=== PATIENT | female | born 1955 | race Caucasian/White ===

== ENCOUNTER 2023-12-01 10:22 | Outpatient (RCR) | payer OTHER, SELFPAY ==
[2023-08-15 13:08] LABS: Hematocrit* 35.8 % (33.0-51.0); Hemoglobin* 12.0 gm/dL (12.0-16.0); Immature Granulocytes Abs Auto 0.01 K/uL (0.00-0.30); Immature Granulocytes Pct Auto 0.2 %; Lymphocytes Absolute Auto 1.04 K/uL (0.90-2.90); Mean Corpuscular HGB Conc 34 gm/dL (32-36); Mean Corpuscular Hemoglobin 38 pg (26-34); Mean Corpuscular Volume 113 fL (80-100); RDW Coefficient of Variation % 14.6 % (11.5-15.5); Red Blood Count* 3.16 m/uL (4.00-5.20); White Blood Count* 4.70 K/uL (4.50-11.00)
[2023-08-15 13:16] LABS: Albumin* 4.4 g/dL (3.3-5.0); Chloride* 104 mmol/L (96-114); Slide Review Reflex No; Sodium* 136 mmol/L (135-149)
[2023-08-15 13:17] LABS: Potassium* 3.6 mmol/L (3.6-5.1)
[2023-08-15 13:19] LABS: Alanine Aminotransferase* 22 U/L (4-35); Alkaline Phosphatase* 96 U/L (40-150); Anion Gap 8 mEq/L (7-15); Aspartate Amino Transferase* 36 U/L (12-35); Bilirubin Total* 1.5 mg/dL (0.1-1.5); Blood Urea Nitrogen* 24 mg/dL (7-30); Carbon Dioxide* 24 mmol/L (20-32); Creatinine* 0.7 mg/dL (0.5-1.5); Estimated Glomerular Filt Rate 94 ml/min; Total Protein* 6.8 g/dL (6.0-8.3)
[2023-08-15 13:20] LABS: Calcium* 9.7 mg/dL (8.4-10.6); Glucose* 96 mg/dL (60-115)
[2023-08-16 18:26] LABS: Carcinoembryonic Antigen 12.8 ng/mL
[2023-09-20 17:13] LABS: Chloride* 103 mmol/L (96-114)
[2023-09-20 17:14] LABS: Albumin* 4.7 g/dL (3.3-5.0); Potassium* 4.2 mmol/L (3.6-5.1); Sodium* 136 mmol/L (135-149)
[2023-09-20 17:17] LABS: Alanine Aminotransferase* 19 U/L (4-35); Alkaline Phosphatase* 95 U/L (40-150); Anion Gap 7 mEq/L (7-15); Aspartate Amino Transferase* 43 U/L (12-35); Bilirubin Total* 1.4 mg/dL (0.1-1.5); Blood Urea Nitrogen* 27 mg/dL (7-30); Carbon Dioxide* 26 mmol/L (20-32); Creatinine* 0.7 mg/dL (0.5-1.5); Estimated Glomerular Filt Rate 94 ml/min; Glucose* 97 mg/dL (60-115); Total Protein* 7.3 g/dL (6.0-8.3)
[2023-09-20 17:18] LABS: Calcium* 10.0 mg/dL (8.4-10.6)
[2023-09-20 18:56] LABS: Hematocrit* 36.8 % (33.0-51.0); Hemoglobin* 12.2 gm/dL (12.0-16.0); Immature Granulocytes Abs Auto 0.00 K/uL (0.00-0.30); Immature Granulocytes Pct Auto 0.0 %; Lymphocytes Absolute Auto 1.30 K/uL (0.90-2.90); Mean Corpuscular HGB Conc 33 gm/dL (32-36); Mean Corpuscular Hemoglobin 38 pg (26-34); Mean Corpuscular Volume 114 fL (80-100); RDW Coefficient of Variation % 15.5 % (11.5-15.5); Red Blood Count* 3.23 m/uL (4.00-5.20); White Blood Count* 5.40 K/uL (4.50-11.00)
[2023-09-20 19:08] LABS: Slide Review Reflex No
[2023-09-23 07:48] LABS: Carcinoembryonic Antigen 12.9 ng/mL
[2023-12-01 10:57] LABS: Hematocrit* 40.4 % (33.0-51.0); Hemoglobin* 13.2 gm/dL (12.0-16.0); Mean Corpuscular HGB Conc 33 gm/dL (32-36); Mean Corpuscular Hemoglobin 37 pg (26-34); Mean Corpuscular Volume 112 fL (80-100); RDW Coefficient of Variation % 16.1 % (11.5-15.5); Red Blood Count* 3.61 m/uL (4.00-5.20); White Blood Count* 3.75 K/uL (4.50-11.00)
[2023-12-01 10:58] LABS: Immature Granulocytes Abs Auto 0.00 K/uL (0.00-0.30); Immature Granulocytes Pct Auto 0.0 %
[2023-12-01 11:00] LABS: Lymphocytes Absolute Auto 0.90 K/uL (0.90-2.90); Slide Review Reflex No
[2023-12-01 11:17] LABS: Chloride* 101 mmol/L (96-114)
[2023-12-01 11:18] LABS: Albumin* 4.9 g/dL (3.3-5.0); Potassium* 4.5 mmol/L (3.6-5.1); Sodium* 136 mmol/L (135-149)
[2023-12-01 11:20] LABS: Anion Gap 10 mEq/L (7-15); Carbon Dioxide* 25 mmol/L (20-32); Creatinine* 0.8 mg/dL (0.5-1.5); Estimated Glomerular Filt Rate 80 ml/min
[2023-12-01 11:21] LABS: Alanine Aminotransferase* 20 U/L (4-35); Alkaline Phosphatase* 97 U/L (40-150); Aspartate Amino Transferase* 33 U/L (12-35); Bilirubin Total* 2.4 mg/dL (0.1-1.5); Blood Urea Nitrogen* 21 mg/dL (7-30); Calcium* 10.1 mg/dL (8.4-10.6); Glucose* 94 mg/dL (60-115); Total Protein* 7.8 g/dL (6.0-8.3)
[2023-12-02 23:11] LABS: Carcinoembryonic Antigen 11.3 ng/mL
== END 2024-11-06 08:22 | disposition home or self-care (01) ==
LOC: LAB 10:22
PROVIDERS: PCP Student in an Organized Health Care Education/Training Program; Visit Provider Physician Assistant
DX: C79.51 Secondary malignant neoplasm of bone (principal); R97.8 Other abnormal tumor markers
CPT/HCPCS: 36415; 80053; 82378; 85025; 86300

== ENCOUNTER 2023-12-14 13:06 | Outpatient (RCR) | payer OTHER, SELFPAY ==
[2023-12-14 13:36] LABS: Hematocrit* 38.2 % (33.0-51.0); Hemoglobin* 12.6 gm/dL (12.0-16.0); Immature Granulocytes Abs Auto 0.01 K/uL (0.00-0.30); Immature Granulocytes Pct Auto 0.2 %; Lymphocytes Absolute Auto 1.10 K/uL (0.90-2.90); Mean Corpuscular HGB Conc 33 gm/dL (32-36); Mean Corpuscular Hemoglobin 38 pg (26-34); Mean Corpuscular Volume 114 fL (80-100); RDW Coefficient of Variation % 16.3 % (11.5-15.5); Red Blood Count* 3.36 m/uL (4.00-5.20); Slide Review Reflex No; White Blood Count* 5.79 K/uL (4.50-11.00)
[2023-12-14 14:02] LABS: Albumin* 4.6 g/dL (3.3-5.0); Chloride* 104 mmol/L (96-114); Potassium* 4.5 mmol/L (3.6-5.1); Sodium* 139 mmol/L (135-149)
[2023-12-14 14:04] LABS: Anion Gap 7 mEq/L (7-15); Carbon Dioxide* 28 mmol/L (20-32); Cholesterol* 185 mg/dL (90-199); Creatinine* 0.6 mg/dL (0.5-1.5); Estimated Glomerular Filt Rate 97 ml/min
[2023-12-14 14:05] LABS: Alanine Aminotransferase* 23 U/L (4-35); Alkaline Phosphatase* 110 U/L (40-150); Aspartate Amino Transferase* 35 U/L (12-35); Bilirubin Total* 0.8 mg/dL (0.1-1.5); Blood Urea Nitrogen* 18 mg/dL (7-30); Calcium* 9.5 mg/dL (8.4-10.6); Glucose* 110 mg/dL (60-115); HDL Cholesterol* 82 mg/dL (>=50); LDL Cholesterol Calculated 74 mg/dL (<100); Total Protein* 7.1 g/dL (6.0-8.3); Triglycerides* 144 mg/dL (40-149)
[2023-12-16 04:24] LABS: Carcinoembryonic Antigen 10.3 ng/mL
== END 2024-12-06 23:59 | disposition home or self-care (01) ==
LOC: LAB 13:06
PROVIDERS: PCP Student in an Organized Health Care Education/Training Program; Visit Provider Student in an Organized Health Care Education/Training Program
DX: C50.911 Malignant neoplasm of unspecified site of right female breast (principal); C79.51 Secondary malignant neoplasm of bone; Z13.6 Encounter for screening for cardiovascular disorders; I10 Essential (primary) hypertension; Z79.899 Other long term (current) drug therapy
CPT/HCPCS: 36415; 80053; 80061; 82378; 85025; 86300

== ENCOUNTER 2024-01-19 10:13 | Outpatient (RCR) | payer OTHER, SELFPAY ==
[2024-01-19 10:54] LABS: Hematocrit* 41.8 % (33.0-51.0); Hemoglobin* 13.8 gm/dL (12.0-16.0); Immature Granulocytes Abs Auto 0.00 K/uL (0.00-0.30); Immature Granulocytes Pct Auto 0.0 %; Mean Corpuscular HGB Conc 33 gm/dL (32-36); Mean Corpuscular Hemoglobin 36 pg (26-34); Mean Corpuscular Volume 109 fL (80-100); RDW Coefficient of Variation % 14.9 % (11.5-15.5); Red Blood Count* 3.82 m/uL (4.00-5.20); White Blood Count* 3.58 K/uL (4.50-11.00)
[2024-01-19 11:07] LABS: Lymphocytes Absolute Auto 0.80 K/uL (0.90-2.90); Slide Review Reflex No
[2024-01-19 11:10] LABS: Albumin* 4.5 g/dL (3.3-5.0); Chloride* 105 mmol/L (96-114)
[2024-01-19 11:11] LABS: Potassium* 3.9 mmol/L (3.6-5.1); Sodium* 137 mmol/L (135-149)
[2024-01-19 11:13] LABS: Alkaline Phosphatase* 79 U/L (40-150); Anion Gap 9 mEq/L (7-15); Aspartate Amino Transferase* 32 U/L (12-35); Bilirubin Total* 1.6 mg/dL (0.1-1.5); Blood Urea Nitrogen* 18 mg/dL (7-30); Carbon Dioxide* 23 mmol/L (20-32); Creatinine* 0.6 mg/dL (0.5-1.5); Estimated Glomerular Filt Rate 97 ml/min; Total Protein* 7.2 g/dL (6.0-8.3)
[2024-01-19 11:14] LABS: Alanine Aminotransferase* 21 U/L (4-35); Calcium* 9.4 mg/dL (8.4-10.6); Glucose* 91 mg/dL (60-115)
[2024-01-21 06:12] LABS: Carcinoembryonic Antigen 11.7 ng/mL
== END 2025-01-06 | disposition home or self-care (01) ==
LOC: LAB 10:13
PROVIDERS: Physician Assistant; PCP Student in an Organized Health Care Education/Training Program; Visit Provider Student in an Organized Health Care Education/Training Program
DX: C79.51 Secondary malignant neoplasm of bone (principal); C50.911 Malignant neoplasm of unspecified site of right female breast
CPT/HCPCS: 36415; 80053; 82378; 85025; 86300

== ENCOUNTER 2024-04-22 08:30 | Outpatient (RCR) | payer OTHER, SELFPAY | END 2024-05-30 13:49 | disposition home or self-care (01) | PROVIDERS: PCP Student in an Organized Health Care Education/Training Program; Visit Provider Student in an Organized Health Care Education/Training Program | DX: M75.81 Other shoulder lesions, right shoulder (principal); Z51.89 Encounter for other specified aftercare | CPT/HCPCS: 97110; 97112; 97140; 97161 ==